=== PATIENT | female | born 1940 | race Caucasian/White ===

== ENCOUNTER 2021-05-10 12:37 | Outpatient (CLI) | payer MEDICARE | END 2021-05-10 12:38 | disposition home or self-care (01) | LOC: CSHCT 12:37 | PROVIDERS: ATTEND Internal Medicine Cardiovascular Disease | DX: Z01.810 Encounter for preprocedural cardiovascular examination (principal); I47.1 Supraventricular tachycardia; I48.0 Paroxysmal atrial fibrillation; I50.30 Unspecified diastolic (congestive) heart failure; I24.0 Acute coronary thrombosis not resulting in myocardial infarction; Z01.818 Encounter for other preprocedural examination; Z20.822 Contact with and (suspected) exposure to COVID-19 | CPT/HCPCS: 71275; 80053; 81003; 82565; 85027; 85610; 85730; 86850; 86900; 86901; 93005; 93010; U0003; U0005 ==